=== PATIENT | female | born 1960 | race Caucasian/White ===

== ENCOUNTER 2018-07-31 20:06 | Emergency (ER) | payer OTHER ==
[2018-07-31 20:50] VITALS: BP 138/81; PULSE 75; TEMP 98.8; O2SAT 100
--- NOTE | 2018-07-31 22:12 | C.PDOC ---
History Of Present Illness 58 year old female presents to the ER with a complaint of left ankle pain. Patient states she was carrying furniture in her house when she tripped down a few stairs and twisted her left ankle. Patient believes the piece of furniture might have fallen on her foot as well. Denies head injury, LOC, weakness, or numbness. Time Seen by Provider: 07/31/18 20:58 Chief Complaint (Nursing): Lower Extremity Problem/Injury History Per: Patient History/Exam Limitations: no limitations Onset/Duration Of Symptoms: Hrs Current Symptoms Are (Timing): Still Present Recent travel outside of the [place]: No - Ankle/Foot Description Of Injury: Struck With Object, Twisted Past Medical History Reviewed: Historical Data, Nursing Documentation, Vital Signs Vital Signs: Last Vital Signs Temp 98.8 F 07/31/18 20:47 Pulse 75 07/31/18 20:47 Resp 18 07/31/18 20:47 BP 138/81 07/31/18 20:47 Pulse Ox 100 07/31/18 20:47 - Medical History PMH: Cardia Arrhythmia (dx 1 week ago), Kidney Stones Surgical History: Cholecystectomy, Hernia Repair Family History: States: No Known Family Hx - Social History Hx Tobacco Use: No Hx Alcohol Use: No Hx Substance Use: No - Immunization History Hx Tetanus Toxoid Vaccination: No Hx Influenza Vaccination: No Hx Pneumococcal Vaccination: No Review Of Systems Musculoskeletal: Positive for: Other (Left ankle pain) Neurological: Negative for: Weakness, Numbness Physical Exam - Physical Exam Appears: Non-toxic Skin: Normal Color, Warm, Dry Head: Atraumatic, Normacephalic Eye(s): bilateral: Normal Inspection Extremity: Normal ROM (x4), Capillary Refill (<2 seconds), Other (Tenderness and minimal swelling to left lateral malleolus and mid ankle. Left foot normal.) Pulses: Left Dorsalis Pedis: Normal, Right Dorsalis Pedis: Normal Neurological/Psych: Oriented x3, Normal Speech Gait: Steady ED Course And Treatment O2 Sat by Pulse Oximetry: 100 (Room air) Pulse Ox Interpretation: Normal - Other Rad Left ankle x-ray X-Ray: Interpreted by Me, Viewed By Me Interpretation: No acute fractures or dislocations. Progress Note: Left ankle x-ray ordered, results were negative. Motrin administered. Patient placed in debra wrap for support, she refused crutches stating that she has a pair at home, instructed her to avoid weight bearing. Advised patient that she will be notified if any abnormalities are found in her x-rays and to follow up with ortho for further evaluation., patient understands and agrees with plan. Disposition - Disposition Referrals: Deuce Rosado MD [Staff Provider] - Disposition: HOME/ ROUTINE Disposition Time: 22:09 Condition: STABLE Additional Instructions: APPLY ICE TO AREA TAKE MOTRIN FOR PAIN LEG ELEVATION FOLLOW UP WITH THE ORTHOPEDIST IF PAIN PERSISTS OR WORSENS RETURN TO ER IF WORSE Prescriptions: Ibuprofen [Motrin] 600 mg PO Q6H #24 tab Instructions: Ankle Sprain (DC) Forms: [facility] (H[place]ian), Work Excuse Print Language: AFGHAN - Clinical Impression Clinical Impression: Left ankle sprain - PA / MACHINE [employer] / Resident Statement MD/DO has reviewed & agrees with the documentation as recorded. - Scribe Statement The provider has reviewed the documentation as recorded by the Scribkiara Alfaro All medical record entries made by the Supaibkiara were at my direction and personally dictated by me. I have reviewed the chart and agree that the record accurately reflects my personal performance of the history, physical exam, medical decision making, and the department course for this patient. I have also personally directed, reviewed, and agree with the discharge instructions and disposition.
[2018-07-31 22:40] VITALS: RESP 20
--- NOTE | 2018-08-01 12:13 | RAD ---
Date of service: 07/31/2018 PROCEDURE: Left Ankle Radiographs. HISTORY: pain, fell fom stairs COMPARISON: None available. FINDINGS: BONES: There is diffuse bone demineralization. There is a curvilinear ossific density lateral to the medial malleolus. There is an old deformity in the lateral malleolus. There is a prominent dorsal calcaneal enthesophyte. JOINTS: Normal. No osteoarthritis. Ankle mortise maintained. Talar dome intact SOFT TISSUES: Normal. OTHER FINDINGS: None. IMPRESSION: Curvilinear ossific density medial to the medial malleolus could represent tendon calcification or avulsion fracture in the appropriate clinical setting. Please correlate with point tenderness.
== END 2018-07-31 22:39 | disposition home or self-care (01) ==
LOC: SUPCPDRO 20:06 → C.ER 20:06
DX: S93.402A Sprain of unspecified ligament of left ankle, initial encounter (principal); X50.9XXA Other and unspecified overexertion or strenuous movements or postures, initial encounter; Y92.009 Unspecified place in unspecified non-institutional (private) residence as the place of occurrence of the external cause